=== PATIENT | female | born 1975 | race Asian ===

== ENCOUNTER 2019-03-19 11:09 | Day surgery (SDC) | payer OTHER ==
[~2019-03-19] VITALS: Ht 162.6 cm; Wt 92.5 kg
== END 2019-03-19 13:45 | disposition home or self-care (01) ==
LOC: OR 11:09
PROC: 3E0R33Z Introduction of Anti-inflammatory into Spinal Canal, Percutaneous Approach (ICD-10-PCS; principal; 2019-03-19)
PROC: B01BYZZ Fluoroscopy of Spinal Cord using Other Contrast (ICD-10-PCS; 2019-03-19)
DX: M50.123 Cervical disc disorder at C6-C7 level with radiculopathy (principal)
CPT/HCPCS: J1020

== ENCOUNTER 2019-04-16 11:11 | Day surgery (SDC) | payer OTHER ==
[~2019-04-16] VITALS: Ht 162.6 cm; Wt 93.0 kg
== END 2019-04-16 14:40 | disposition home or self-care (01) ==
LOC: OR 11:11
PROC: 3E0R33Z Introduction of Anti-inflammatory into Spinal Canal, Percutaneous Approach (ICD-10-PCS; principal; 2019-04-16)
PROC: B01BYZZ Fluoroscopy of Spinal Cord using Other Contrast (ICD-10-PCS; 2019-04-16)
DX: M50.123 Cervical disc disorder at C6-C7 level with radiculopathy (principal)
CPT/HCPCS: J1020